=== PATIENT | female | born 1985 | race Caucasian/White ===

== ENCOUNTER 2018-01-05 04:40 | Emergency (ER) | payer BC ==
[~2018-01-05] VITALS: Ht 167.6 cm; Wt 124.7 kg
[~2018-01-05 04:40] MED LIST: HYDACE5 PO
[2018-01-05] MEDS ORDERED: GABA100 PO (05:14)
[2018-01-05] MEDS ORDERED: ORTHO-CYCLEN 21 EACH PO (05:15)
[2018-01-05] MEDS ORDERED: SERT25 PO (05:15)
[2018-01-05] MEDS ORDERED: OSTERA TABLET1 EACH PO (05:16)
[2018-01-05] MEDS ORDERED: Norco 5-325 Ta1 EACH PO (16:48)
[2018-08-04] MEDS ORDERED: AUBAGIO14 MG PO (09:47)
[2018-08-04] MEDS ORDERED: CYAN500 PO (09:47)
[2018-08-04] MEDS ORDERED: Prilosec Otc20 MG (09:48)
== END 2018-01-05 05:49 | disposition home or self-care (01) ==
LOC: ER 04:40
DX: R51 Headache (principal); Z88.0 Allergy status to penicillin; Z88.8 Allergy status to other drugs, medicaments and biological substances; Z79.899 Other long term (current) drug therapy
CPT/HCPCS: 96372; 99283; J1200; J1885

== ENCOUNTER 2018-01-05 13:13 | Emergency (ER) | payer BC ==
[~2018-01-05] VITALS: Ht 167.6 cm; Wt 124.7 kg
[~2018-01-05 13:13] MED LIST changes: +GABA100 PO; +ORTHO-CYCLEN 21 EACH PO; +OSTERA TABLET1 EACH PO; +SERT25 PO
[2018-01-05] MEDS ORDERED: Norco 5-325 Ta1 EACH PO (16:48)
[2018-08-04] MEDS ORDERED: CYAN500 PO (09:47)
[2018-08-04] MEDS ORDERED: AUBAGIO14 MG PO (09:47)
[2018-08-04] MEDS ORDERED: Prilosec Otc20 MG (09:48)
== END 2018-01-05 17:00 | disposition home or self-care (01) ==
LOC: ER 13:13
DX: R51 Headache (principal); Z88.1 Allergy status to other antibiotic agents; Z88.0 Allergy status to penicillin; Z88.8 Allergy status to other drugs, medicaments and biological substances; Z79.899 Other long term (current) drug therapy
CPT/HCPCS: 36415; 70450; 96374; 96375; 99284; J0780; J1200; J1885; J2405

== ENCOUNTER 2018-01-07 04:41 | Emergency (ER) | payer BC ==
[~2018-01-07 04:41] MED LIST changes: +Norco 5-325 Ta1 EACH PO
[2018-01-07] MEDS ORDERED: HYDR1TAB94 PO (08:36)
[2018-08-04] MEDS ORDERED: CYAN500 PO (09:47)
[2018-08-04] MEDS ORDERED: AUBAGIO14 MG PO (09:47)
[2018-08-04] MEDS ORDERED: Prilosec Otc20 MG (09:48)
== END 2018-01-07 09:08 | disposition home or self-care (01) ==
LOC: ER 04:41
DX: R51 Headache (principal)
CPT/HCPCS: 96361; 96372; 96374; 96375; 99284; J1100; J1170; J1630; J1885; J2765; J7030

== ENCOUNTER 2018-01-07 22:53 | Emergency (ER) | payer BC ==
[~2018-01-07] VITALS: Ht 167.6 cm; Wt 124.7 kg
[~2018-01-07 22:53] MED LIST changes: +HYDR1TAB94 PO
[2018-01-08 00:27] LABS: BASOPHILS ABSOLUTE AUTO 0.02 K/mm3 (0.00-0.23); BASOPHILS PERCENT AUTO 0 % (0-2); EOSINOPHILS PERCENT AUTO 0 % (0-6); Hematocrit 44.4 % (33.0-51.0); Hemoglobin 14.8 g/dL (11.5-16.0); IMMATURE GRAN ABSOLUTE AUTO 0.03 K/mm3 (0.00-0.10); IMMATURE GRAN PERCENT AUTO 0 % (0-1); LYMPHOCYTES ABSOLUTE AUTO 1.14 K/mm3 (0.84-5.20); LYMPHOCYTES PERCENT AUTO 14 % (21-46); MONOCYTES PERCENT AUTO 5 % (4-13); Mean Corpuscular HGB 27.2 pg (26.0-34.0); Mean Corpuscular HGB Conc 33.3 g/dL (31.5-36.5); Mean Corpuscular Volume 82 fL (80-100); NEUTROPHILS ABSOLUTE AUTO 6.72 K/mm3 (1.96-9.15); NEUTROPHILS PERCENT AUTO 81 % (41-73); Platelet Count 194 K/mm3 (150-400); RDW Coefficient Variation 13.6 % (11.7-14.2); RDW Standard Deviation 39.8 fL (35.1-46.3); Red Blood Cell Count 5.44 M/mm3 (3.80-5.20); White Blood Cell Count 8.31 K/mm3 (4.00-11.30)
[2018-01-08 00:40] LABS: Alanine Aminotransfer (ALT/SGP 71 U/L (12-78); Albumin, Blood 3.7 g/dL (3.4-5.0); Albumin/Globulin Ratio 0.8 (0.8-1.8); Alk Phos 100 U/L (50-136); Anion Gap 13 mmol/L (6-16); Aspartate Aminotrans (AST/SGOT 46 U/L (12-37); Bilirubin, Total 0.5 mg/dL (0.1-1.0); Blood Urea Nitrogen 9 mg/dL (8-24); CO2, Blood 15 mmol/L (21-32); Calcium, Blood 8.8 mg/dL (8.5-10.1); Chloride, Blood 108 mmol/L (98-108); Creatinine, Blood 0.64 mg/dL (0.40-1.00); Globulin, Blood 4.5 g/dL (2.2-4.0); Glomerular Filtration Rate >60 (60-); Glucose, Blood 169 mg/dL (70-99); Potassium, Blood 3.6 mmol/L (3.5-5.5); Sodium, Blood 136 mmol/L (136-145); Total Protein, Blood 8.2 g/dL (6.4-8.2)
[2018-01-08 01:07] LABS: U Amphetamine Screen Not Detected; U Barbituate Screen Not Detected; U Benzodiazapine Screen Not Detected; U Buprenorphine Screen Not Detected; U Cannabinoids Screen DETECTED; U Cocaine Screen Not Detected; U Methadone Screen Not Detected; U Methamphetamine Screen Not Detected; U Opiates Screen DETECTED; U Oxycodone Screen Not Detected; U Phencyclidine Screen Not Detected; U Propoxyphene Screen Not Detected
[2018-08-04] MEDS ORDERED: AUBAGIO14 MG PO (09:47)
[2018-08-04] MEDS ORDERED: CYAN500 PO (09:47)
[2018-08-04] MEDS ORDERED: Prilosec Otc20 MG (09:48)
== END 2018-01-08 04:20 | disposition short-term general hospital (02) ==
LOC: ER 22:53
PROVIDERS: Emergency Medicine
DX: R56.9 Unspecified convulsions (principal); I60.9 Nontraumatic subarachnoid hemorrhage, unspecified; Z88.0 Allergy status to penicillin; Z88.8 Allergy status to other drugs, medicaments and biological substances; Z79.899 Other long term (current) drug therapy
CPT/HCPCS: 51701; 51702; 70450; 70496; 70498; 80053; 81000; 81025; 82947; 83605; 85025; 93005; 93010; 96365; 96367; 96375; 96376; 99285; G0480; J1953; J2060; J7050; Q9967

== ENCOUNTER → 2018-02-16 | Outpatient (CLI) | payer BC | END | disposition home or self-care (01) | LOC: LAB SHORT 16:08 → LAB 16:08 | PROVIDERS: Nurse Practitioner Women's Health | DX: Z12.4 Encounter for screening for malignant neoplasm of cervix (principal) | CPT/HCPCS: 87624; G0123 ==